=== PATIENT | female | born 1990 | race Caucasian/White ===

== ENCOUNTER 2023-05-12 19:59 | Inpatient (IN) | payer BC, SELFPAY ==
--- NOTE | 2023-05-12 20:38 | PM.OBHP.1 ---
OB HPI Date/Time Date of admission: 05/12/23 Date Patient Seen: 05/12/23 Time Patient Seen: 20:38 History of Present Condition Chief complaint: Labor : 1 Para: 0 Estimated Date of Delivery: 05/29/23 Estimated Gestational Age (weeks): 37w4d Narrative: Tootie Dominguez is a 33 year old female at 37w4d by conception date and 6w6d ultrasound. Tootie had an uncomplicated . She is GBS negative and has no known allergies. Tootie has been having contractions all day; mild from when she woke this morning. Reports rupture of membranes, clear fluid, at 1700. Contractions became more intense after that, and called requesting to come in at 1900. movement has been normal today. Contractions are now q 3 min x 60 seconds and fundus is firm. Fluid continues to be clear. History of Present care: good care, initiated at week # (6), number of visits (7) and pounds weight gain (24) Dating criteria: other (Conception confirmed by 1st trimester ultrasound) Ultrasounds: normal 1st trimester US and normal mid trimester US (EIF noted but not concerning in context of normal cell free DNA testing) Obstetrical complications: none Medical complications: none Preadmission Labs Blood type: B (+) positive -: Antibody screen: negative, Cystic fibrosis screen: unknown, GBS status: negative, HBsAG: negative, HIV: negative, HSV 1: unknown, HSV 2: unknown and RPR/VDLR: negative -: Chlamydia screen: not detected and Gonorrhea screen: not detected -: Rubella: immune and Varicella: immune HCT: 38.1 HCAB: negative PAP: Normal Cell-free DNA: Negative x 4 Urine: Negative urine culture at 16 weeks 1 hr GTT: 69 Narrative: Low risk MsAFP at 16 weeks Prior (ies) History: none Evaluation Evaluation Baseline heart rate: 130 Variability: Moderate (11-25) monitor accelerations: Present Monitor Decelerations: Absent Contraction Frequency (minutes): 3 Status: Category l Dilation (cm): 10 station: 0 PFSH Family History (Updated 05/12/23 @ 20:51 by Anjelica Burks CNM, IRRIGATION SYSTEM OPERATOR) Grandmother Cancer Hypertension Grandfather Cancer Hypertension Father Hypertension Social History marital status: household members: spouse lives independently: Yes caregiver/support person: No education level: college occupational status: employed Smoking Status: Never smoker alcohol intake: former Meds Home Medications and Allergies Allergies Allergy/AdvReac Type Severity Reaction Status Date / Time hay fever Allergy Intermediate Sneezing Uncoded 05/12/23 20:54 nkda AdvReac Unknown Uncoded 05/12/23 20:54 Review of Systems Review of Systems Narrative: All negative except as mentioned above. OB Exam Vital signs Blood Pressure: 132/74 Pulse Rate: 81 Temperature: 97.9 F Cardio Rate: regular rate Rhythm: regular rhythm Heart Sounds: S1 normal, S2 normal and normal, physiologic split S2 GI Inspection: normal to inspection Presentation: vertex Estimated Weight (lbs): 7 Amniotic Fluid: clear Objective Labs 05/12/23 23:50 Assessment and Plan Assessment and Plan Assessment and Plan narrative: at 37w4d by conception and early US GBS neg FHR Cat 1 Rh positive Active labor Admit to L&D. Comfort measures as she desires. Plan for nitrous oxide now. Anticipate .
[2023-05-12] MEDS: ONDANSETRON 4 MG ODT SL (21:34)
[2023-05-12] MEDS: METHYLERGONOVINE 0.2 MG/ML VIAL IM (23:35)
[2023-05-12] MEDS: LACTATED RINGERS 1,000 ML 100 ML IV (23:56)
[2023-05-12] MEDS: TRANEXAMIC ACID 1,000 MG in SODIUM CHLORIDE 0.9% 100 ML 200 MG IV (23:56)
[2023-05-13] MEDS: OXYTOCIN 10 UNIT/ML VIAL IM (00:01)
[2023-05-13 00:10] LABS: Add Manual Diff / Slide Review NO; Basophils Absolute Auto 100 /uL (0-100); Basophils Percent Auto 0.3 % (0-2); Eosinophils Absolute Auto 0 /uL (0-450); Hematocrit 38.9 % (36-46); Lymphocytes Absolute Auto 900 /uL (1100-4500); Lymphocytes Percent Auto 4.3 % (25-40); Mean Corpuscular HGB Conc 33.4 % (30-36); Mean Corpuscular Hemoglobin 30.8 PG (26-34); Mean Corpuscular Volume 92.2 fL (80-100); Monocytes Absolute Auto 500 /uL (0-900); Monocytes Percent Auto 2.2 % (3-14); Neutrophils Absolute Auto 20500 /uL (1500-7000); Neutrophils Percent Auto 93.2 % (50-75); Platelet Count 187 X10^3/uL (150-400); Red Blood Cell Count 4.22 X10^6/uL (4.0-5.2); Red Cell Distribution Width 13.5 % (11.6-14.8)
[2023-05-13 00:47] VITALS: BP 132/74; PULSE 81; TEMP 36.6
--- NOTE | 2023-05-13 00:48 | PM.OBPRVD ---
Events: Other (Spontaneous labor) Labor & Delivery Delivery date: 05/12/23 Intrapartal Events: None Induction method: none Delivery monitor: external FHT Route of delivery: L&D Laceration Description: Periurethral - 1st Degree, Perineal - 2nd Degree and Vaginal - 2nd Degree Delivery repair: vicryl (3-0 in usual fashion) Quantitative Blood Loss: 1,010 Anesthesia Type: None (nitrous oxide) Narrative: Tootie arrived looking like she was in active labor. Labored well and began spontaneous pushing approx 1 hour after arriving. Exam at that time found her to be complete and vertex at 0 station. FHR Cat 1 on admission, so intermittent monitoring was performed, and was reassuring throughout first and second stages. Tootie pushed well first on hands and knees in the bed and then on the toilet. Finally, she moved back to stand leaning on the bed where she delivered a vigorous male. Baby was passed through her legs and received by Mookie, who announced that it was a boy and reported that baby was voiding. Baby then placed on the bed for Tootie to see. When she was ready, Tootie gathered her baby in her arms, and laid down on the bed. QBL at this time was 196 mL. 10 units pitocin given IM. 3 vessel cord clamped by WILLIAM and cut by Mookie KANG. Placenta was delivered spontaneously with large clots. Fundus firm @ U but more clots expressed, bringing QBL up to 596 mL. Upon examination, 2nd degree perineal laceration with sulcus tear as well as hemostatic periclitoral laceration. Perineum and sulcus repaired with 3-0 Vicryl in usual fashion. During repair, bleeding continued, so another 10 U pitocin given IM as well as usual dose of methergine IM. IV placed and TXA given. Fundus remained firm @ U. Sulcus bleeding, so pressure applied and additional repair with locked sutures. Bleeding decreased; single lap sponge left in vagina for pressure; removed approx 1 hour later and bleeding assessed as minimal. Total QBL 1010 mL. Baby boy, Gabriel, skin to skin with mom and breastfed within first hour of life. Mookie and Tootie thrilled to meet their son. Birthweight 3373g. Baby 1: gender: Male Presentation: vertex Position: Left Occiput Anterior Placenta delivery description: Spontaneous Cord Vessel Description: 3 Vessels score (1 min): 9 score (5 min): 9
[2023-05-13] MEDS: ACETAMINOPHEN 325 MG TABLET 975 MG PO ×2 (01:28→08:03)
[2023-05-13] MEDS: KETOROLAC 30 MG/ML VIAL IV (01:28)
[2023-05-13] MEDS: DERMOPLAST SPRAY 20% 60 ML 1 SPRAY TOP (02:20)
[2023-05-13] MEDS: LANOLIN OINT 7 GM 1 APPLIC TOP (02:21)
[2023-05-13] MEDS: IBUPROFEN 600 MG TABLET PO ×3 (08:03→22:27)
[2023-05-13 08:55] LABS: Add Manual Diff / Slide Review NO; Basophils Absolute Auto 100 /uL (0-100); Basophils Percent Auto 0.7 % (0-2); Eosinophils Absolute Auto 0 /uL (0-450); Eosinophils Percent Auto 0.1 % (2-4); Hematocrit 30.2 % (36-46); Hemoglobin 10.3 g/dL (12.0-16.0); Lymphocytes Absolute Auto 2300 /uL (1100-4500); Lymphocytes Percent Auto 15.6 % (25-40); Mean Corpuscular HGB Conc 34.1 % (30-36); Mean Corpuscular Hemoglobin 31.4 PG (26-34); Mean Corpuscular Volume 91.9 fL (80-100); Monocytes Absolute Auto 1100 /uL (0-900); Monocytes Percent Auto 7.4 % (3-14); Neutrophils Absolute Auto 11400 /uL (1500-7000); Neutrophils Percent Auto 76.2 % (50-75); Platelet Count 160 X10^3/uL (150-400); Red Blood Cell Count 3.29 X10^6/uL (4.0-5.2); Red Cell Distribution Width 13.3 % (11.6-14.8)
[2023-05-13] MEDS: ACETAMINOPHEN 325 MG TABLET 650 MG PO ×2 (15:23→22:28)
--- NOTE | 2023-05-13 22:19 | P.PNOB_ITS ---
Subjective - OB Subjective Interval history: Tootie doing well. 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 Overall feeling good.No dizziness or shortness of breath. is challenging; baby is not vigorous at the breast. Exam Vital Signs (past 8 hours): 102/59 (range 102-118/55-66) 67 bpm (range 60-80) 14/min (range 14-19) 36.3 C axillary (range 97.7 - 98.3 F) SpO2 98% Other: Fundus firm U-1 Skin General: no rashes or lesions noted Neuro General: patient alert, patient awake and patient oriented x3 Psych Appearance: grossly normal Mental Status: mental status grossly normal Speech and Movement: speech and movement normal Mood: congruent mood Affect: normal affect Attitude: cooperative Thought Process: normal Thought Content: normal Judgment: judgment good Objective Labs 05/13/23 08:50 Labs: Laboratory Results - last 24 hr 05/12/23 05/12/23 05/13/23 23:50 23:50 08:50 WBC 22.0 H 15.0 H RBC 4.22 3.29 L Hgb 13.0 10.3 L Hct 38.9 30.2 L MCV 92.2 91.9 MCH 30.8 31.4 MCHC 33.4 34.1 RDW 13.5 13.3 Plt Count 187 160 Neut % (Auto) 93.2 H 76.2 H Lymph % (Auto) 4.3 L 15.6 L [place] % (Auto) 2.2 L 7.4 Eos % (Auto) 0.0 L 0.1 L Baso % (Auto) 0.3 0.7 Neut # (Auto) 97653 H 19377 H Lymph # (Auto) 900 L 2300 [place] # (Auto) 500 1100 H Eos # (Auto) 0 0 Baso # (Auto) 100 100 Blood Type B Positive Antibody Screen Negative Assessment & Plan Assessment and Plan (1) Patient is a currently breast-feeding mother: Status: Acute (2) (normal spontaneous vaginal delivery): Status: Acute (3) hemorrhage: Status: Acute Plan day: 0 plan OB: routine care Comments: Plan for discharge home in the morning. Recommend PO iron BID x 6 weeks Time Spent With Patient Time: Total time spent is greater than 50% in coordination of care (as documented) at patient's floor/unit and/or counseling patient: Time with patient: 15-24 minutes
[2023-05-14] MEDS: ACETAMINOPHEN 325 MG TABLET 650 MG PO (05:08)
[2023-05-14] MEDS: IBUPROFEN 600 MG TABLET PO (05:09)
--- NOTE | 2023-05-14 09:08 | PM.OBDS.1 ---
Discharge Providers Provider Date of admission: 05/12/23 19:59 Discharge Date: 05/14/23 Consults: 05/14/23 00:39 Consult to Quality Control Engineering Technician Routine Comment: Discharge provider: Anjelica Burks CNM, ARNP Summary Hospital Course Date Patient Seen: 05/14/23 Time Patient Seen: 09:08 Diagnoses: Tootie arrived in active labor, quickly progressed to spontaneously pushing and had a cam, standing, NSVB. PPH r/to uterine atony and sulcus laceration treated with pitocin, methergine, TXA and pressure. Appropriate drop in H&H, asymptomatic. well, overall feeling well. Peripartum Data Infant Delivery Method: Natural Vaginal Laceration Description: Periurethral - 1st Degree, Perineal - 2nd Degree and Vaginal - 2nd Degree Procedures: Perineum and sulcus lacerations repaired with 3-0 Vicryl in usual fashion. [place] 1: Gender: Male Discharge Diagnosis (1) Patient is a currently breast-feeding mother: Status: Acute (2) (normal spontaneous vaginal delivery): Status: Acute (3) hemorrhage: Status: Acute Status at Discharge Cognitive/behavioral status at discharge: oriented and at baseline, oriented Functional status at discharge: independent ambulation Overall status at discharge: patient is progressing back to baseline Time Spent with Patient Time attestation: Total time spent providing and/or coordinating discharge services: Time spent: Less than 30 minutes Objective Labs 05/13/23 08:50 Exam Vital Signs (past 8 hours): 104/67 77 bpm 16/min 97.9 F ttemporal Const General: healthy appearing and comfortable [facility] Head: normocephalic Resp Effort & Inspection: normal respiratory effort Other: Fundus firm at U-1 Bleeding mild to moderate Neuro General: patient alert, patient awake and patient oriented x3 Psych Appearance: grossly normal Mental Status: mental status grossly normal Discharge Plan Discharge Plan Patient Disposition: Home Discharge orders & Medications Prescriptions: Continued tablet PO DAILY Follow up/Referrals: Anjelica Burks CNM, ARNP [[facility]] - 2 Weeks (2 week and 6 week visits as scheduled (e-mail)) Diet/Activity/Treatments Diet: Diet as Tolerated and Regular Activity: low-house, as recommended Cold/Heat Therapy: as needed for pain Skin/Wound/Dressing Care Report to your healthcare provider any signs of infection, such as:: chills, fever, increased pain and unusual redness Visit Report/Discharge Packet Stand Alone Forms: Patient Portal/API
[2023-05-14 10:00] VITALS: BP 104/67; PULSE 77; RESP 17; TEMP 36.6
== END 2023-05-14 10:25 | disposition home or self-care (01) | DRG 806 ==
PROVIDERS: Admitting Provider Advanced Practice Midwife; Referring Provider Advanced Practice Midwife; Visit Provider Advanced Practice Midwife
DX: O70.1 Second degree perineal laceration during delivery (principal); O72.1 Other immediate postpartum hemorrhage; Z37.0 Single live birth; Z3A.37 37 weeks gestation of pregnancy; Z67.20 Type B blood, Rh positive
CPT/HCPCS: 36415; 59050; 85025; 86850; 86900; 86901; G0379; J1885; J2210; J2590

== ENCOUNTER → 2025-08-06 08:49 | Outpatient (CLI) | payer BC, SELFPAY | LOC: US 08:50 | PROVIDERS: Referring Provider Advanced Practice Midwife; Visit Provider Advanced Practice Midwife | DX: Z34.92 Encounter for supervision of normal pregnancy, unspecified, second trimester (principal); Z3A.20 20 weeks gestation of pregnancy | CPT/HCPCS: 76811 ==

== ENCOUNTER → 2025-08-06 08:50 | Outpatient (CLI) | payer OTHER, SELFPAY ==
--- NOTE | 2025-08-06 08:51 | DI.US.S_ITS ---
PROCEDURE: US OB >= 14 WEEKS FETUS INDICATIONS: Anatomy Scan OUTSIDE/PRIOR DATING DATA: Last menstrual period (LMP): 01/24/2025 LMP-based estimated date of delivery (LEYDI): 09/30/2025 First dating scan (date and location): Unsure Estimated date of delivery (LEYDI) from first dating scan: 12/22/2025. The calculations are made using the working LEYDI of 12/22/2025. TECHNIQUE: Real-time scanning was performed of the fetus, with image documentation and biometric measurements. Endovaginal scanning: Not performed COMPARISON: None. FINDINGS: General: A single living intrauterine gestation is present. Presentation: Vertex Placenta: Placental position is posterior, without previa. Amniotic fluid index: 13.2 cm, normal range is 5-24 cm. Single deepest vertical pocket is 4.4 cm. heart rate: 141 beats per minute. Maternal cervical canal: Closed and measures 4.5 cm long. Normal lower limit is 2.5 cm. biometrics: Biparietal diameter: 4.8 cm, 20 weeks, 3 days. Head circumference: 17.8 cm, 20 weeks, 2 days. Abdominal circumference: 15.9 cm. 21 weeks, 0 day. Femur length: 3.2 cm, 19 weeks, 6 days. Clinically estimated gestational age: 20 weeks, 2 days. Composite gestational age from present scan: 20 weeks, 3 days. Estimated weight and percentile: 354 g, 54%. Anatomic survey: Neuro: Ventricles are non-dilated at less than 10 mm. Cisterna magna is normal at 3-11 mm. Cerebellum is normal in size and morphology. Nuchal skin fold: Normal at less than 6 mm between 14-21 weeks gestational age. Face: Nose and lips, facial profile are normal. Spine: No evidence for spina bifida. Heart: 4-chambered heart is present, with normal ventricular outflow tracts. Questionable echogenic focus is seen in left ventricle. Diaphragm: Diaphragm is intact. Stomach: Left-sided stomach is present. Kidneys: No hydronephrosis. Normal is less than 5 mm in 2nd trimester, less than 7 mm in 3rd trimester. Cord: 3-vessel cord has orthotopic insertion. Bladder: Normal in size. Extremities: All 4 extremities identified. IMPRESSION: 1. Single live intrauterine gestation with fetus in vertex presentation. heart rate is 141 beats per minute. Normal BARBIE at 13.2 cm. Normal growth. Estimated weight is at 54%. 2. Questionable echogenic focus is seen in left ventricle, suggest sonographic follow-up. 3. Rest of the anatomic survey is normal. We strive to produce accurate, complete, and clear reports of imaging services. To assist us in improving patient care, this report was composed using standard report templates and voice recognition software. Therefore, it may contain abnormal punctuation, insertions and/or omissions. Occasional wrong-word or sound-alike substitutions may occur. Though we review the report and make efforts to correct it, we do recommend that the report be read carefully in proper context to recognize any text inaccuracies. Dictated by: Memo Adams M.D. on 08/06/2025 at 13:44 Approved by: Memo Adams M.D. on 08/06/2025 at 13:47
== END ==
LOC: US 12-21 12:32
PROVIDERS: Referring Provider Advanced Practice Midwife; Visit Provider Advanced Practice Midwife
DX: Z34.92 Encounter for supervision of normal pregnancy, unspecified, second trimester (principal); Z3A.20 20 weeks gestation of pregnancy
CPT/HCPCS: 76811